=== PATIENT | male | born 1990 | race Asian ===

== ENCOUNTER 2025-05-07 10:58 | Outpatient (CLI) | payer OTHER | END 2025-05-07 10:59 | disposition home or self-care (01) | LOC: ULT 10:58 | PROVIDERS: ATTEND Student in an Organized Health Care Education/Training Program | DX: N50.89 Other specified disorders of the male genital organs (principal); N44.2 Benign cyst of testis | CPT/HCPCS: 76870 ==

== ENCOUNTER 2025-07-25 12:11 | Outpatient (CLI) | payer OTHER | END 2025-07-25 12:12 | disposition home or self-care (01) | LOC: CT 12:11 | PROVIDERS: ATTEND Urology | DX: N50.89 Other specified disorders of the male genital organs (principal); R93.2 Abnormal findings on diagnostic imaging of liver and biliary tract | CPT/HCPCS: 71260; 74178 ==